=== PATIENT | female | born 1975 ===

== ENCOUNTER → 2018-02-04 | Outpatient (CLI) | payer OTHER ==
[~2018-02-04] MED LIST: ASPI-719 PO; CEP500 PO; CIPR-344 PO; CYC10 PO; CYCL-332 PO; IBU600 PO; KET10 PO; LOR5 PO; LOR5/325 PO; MOTRIN PO; NO ROUTINE MEDS; PER PO; SULF-170 PO
--- NOTE | 2018-02-04 16:32 | RADIOLOGY IMAGING REPORT ---
FACILITY: [facility] - [place] PATIENT NAME: Roberto Castillo : 1975 MR: [id number] V: [id number] EXAM DATE: ORDERING PHYSICIAN: THIERRY BOURNE TECHNOLOGIST: Location: [facility] [place] Patient: Roberto Castillo : 1975 Visit/Account:[id number] Date of Sevice: 02/04/2018 VENOUS DOPP UPPER RIGHT EXTREM HISTORY: Right arm swelling COMPARISON: None. FINDINGS: Grayscale compression, duplex and color Doppler interrogation of the right upper extremity veins was performed. Jugular vein - Negative. Subclavian vein - Negative. Axillary vein - Negative. Basilic vein - Negative. Cephalic vein - Negative. Brachial veins - Negative. Ultrasound interrogation over a palpable lump within the upper medial arm demonstrates an ill-defined nodule. IMPRESSION: No evidence DVT Ill-defined nodule within the subcutaneous fat of the arm. If clinically indicated recommend three-m [facility] follow-up ultrasound Report Dictated By: Sonu Brewster at 02/04/2018 4:26 PM Report E-Signed By: Sonu Brewster at 02/04/2018 4:28 PM [id number]
== END ==
LOC: US 15:02
PROVIDERS: ATTEND Family Medicine
DX: R22.31 Localized swelling, mass and lump, right upper limb (principal)

== ENCOUNTER → 2018-02-12 | Outpatient (CLI) | payer OTHER ==
[~2018-02-12] MED LIST changes: +IOPAMIDOL 76% 75 ML INFUS BTL 75 ML ONE
--- NOTE | 2018-02-12 20:24 | RADIOLOGY IMAGING REPORT ---
FACILITY: [facility] - [place] PATIENT NAME: Roberto Castillo : 1975 MR: [id number] V: [id number] EXAM DATE: [id number] ORDERING PHYSICIAN: THIERRY BOURNE TECHNOLOGIST: Location: [facility] - [place] Patient: Roberto Castillo : 1975 Visit/Account:[id number] Date of Sevice: 02/12/2018 Examination: Computed tomography right humerus without and with contrast HISTORY: Soft tissue mass. COMPARISON: Ultrasound images from 02/04/2018 are reviewed. TECHNIQUE: Transaxial computed marked images are obtained of the right humerus before and after the a dministration of 75 mL Isovue-370. FINDINGS: There is an ill-defined region of soft tissue attenuation within the subcutaneous tissues w ithin the midportion of the right upper arm. This is seen to overlie the anterior and lateral margin of the biceps musculature just distal to the deltoid insertion. This is ovoid in shape with ill-defin ed margins and subtle surrounding stranding. This measures up to 1.9 x 1.0 cm in size. Sagittal and c oronal reconstructed images demonstrate a bilobed shape. This extends to abut the biceps musculature. There is a fat plane which appears preserved. There is suggestion of some linear extension to the ov erlying skin. Following the administration of contrast, there is some subtle stranding/enhancement in the surrounding subcutaneous cutaneous tissues and there is some subtle peripheral enhancement of th is area. This is indeterminant. This could represent an area of evolving fat necrosis. Has there been recent trauma to this region? An evolving soft tissue hematoma could also have this appearance. Precious d neoplasm at this point cannot be excluded. The underlying musculature appears normal. Humerus appears normal. No joint centered abnormality is seen at the humerus or elbow. IMPRESSION: 1. Ill-defined bilobed, peripherally enhancing mass within the soft tissues of the right upper arm as described above. This remains indeterminate. Differential is broad and includes benign entities such as fat necrosis or an evolving soft tissue hematoma. Neoplastic etiologies at this point remain in t he differential. At minimum, follow-up is recommended to ensure stability or resolution. This is repo rtedly palpable and excision could also be performed for definitive evaluation. Report Dictated By: Ronny Sung at 02/12/2018 8:08 PM Report E-Signed By: Ronny Sung at 02/12/2018 8:21 PM WSN:[id number]
== END ==
LOC: CT 01:52
PROVIDERS: ATTEND Family Medicine
DX: R22.31 Localized swelling, mass and lump, right upper limb (principal)
CPT/HCPCS: Q9967